=== PATIENT | female | born 1995 | race Two or more races ===

== ENCOUNTER 2018-02-25 19:11 | Emergency (ER) | payer OTHER ==
[2018-02-25 20:16] LABS: ANION GAP 11.6; CHLORIDE,CL 102 mmol/L (101-111); SODIUM,NA 137 mmol/L (135-145)
[2018-02-25] MEDS ORDERED: Ondansetron 4 MG/2 ML SDV IV ONE (20:30)
--- NOTE | 2018-02-25 20:32 | EDM.PDOC ---
ED HPI GENERAL MEDICAL PROBLEM - General Chief Complaint: Abdominal Pain Stated Complaint: SICK [id number] Time Seen by Provider: 02/25/18 19:20 Source of Information: Reports: Patient History Limitations: Reports: No Limitations - History of Present Illness INITIAL COMMENTS - FREE TEXT/NARRATIVE: This 22 yo female patient reports to the ED with generalized abdominal pain. The patient reports she had diarrhea and vomiting earlier today. The patient has increased concerns due to having some numbness and tingling in all extremities just before vomiting. The patient has not taken anything or done anything to make her symptoms better or worse. Onset: Today Onset Date: 02/25/18 Duration: Improving Location: Reports: Abdomen Quality: Reports: Other Severity: Moderate Improves with: Reports: None Worsens with: Reports: None Associated Symptoms: Reports: Nausea/Vomiting, Other Middle Abdomen Pain Score (Numeric/FACES): 3 - Related Data Allergies Allergy/AdvReac Type Severity Reaction Status Date / Time No Known Allergies Allergy Verified 02/25/18 19:50 Home Meds: Home Meds Sertraline [Zoloft] 50 mg PO BEDTIME 02/25/18 [History] cloNIDine HCl [Catapres] 0.1 mg PO BID 02/25/18 [History] Past Medical History Cardiovascular History: Reports: Heart Murmur 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 ED EXAM, GI/ABD - Physical Exam Exam: See Below Exam Limited By: No Limitations General Appearance: Alert, WD/WN, Mild Distress Eyes: Bilateral: Normal Appearance, EOMI Ears: Normal External Exam, Normal Canal, Hearing Grossly Normal, Normal TMs Nose: Normal Inspection, Normal Mucosa, No Blood Throat/Mouth: Normal Inspection, Normal Lips, Normal Teeth, Normal Gums, Normal Oropharynx, Normal Voice, No Airway Compromise Head: Atraumatic, Normocephalic Neck: Normal Inspection, Supple, Non-Tender, Full Range of Motion Respiratory/Chest: No Respiratory Distress, Lungs Clear, Normal Breath Sounds, No Accessory Muscle Use, Chest Non-Tender Cardiovascular: Normal Peripheral Pulses, Regular Rate, Rhythm, No Edema, No Gallop, No JVD, No Murmur, No Rub GI/Abdominal Exam: Normal Bowel Sounds, Soft, Non-Tender, No Organomegaly, No Distention, No Abnormal Bruit, No Mass, Pelvis Stable (Female) Exam: Deferred Rectal (Female) Exam: Deferred Back Exam: Normal Inspection, Full Range of Motion, NT Extremities: Normal Inspection, Normal Range of Motion, Non-Tender, Normal Capillary Refill, No Pedal Edema Neurological: Alert, Oriented, CN II-XII Intact, Normal Cognition, Normal Gait, Normal Reflexes, No Motor/Sensory Deficits Psychiatric: Normal Affect, Normal Mood Skin Exam: Warm, Dry, Intact, Normal Color, No Rash Lymphatic: No Adenopathy Course - Vital Signs Last Recorded V/S: Last Vital Signs Temp 36.2 C 02/25/18 19:15 Pulse 61 02/25/18 19:15 Resp 15 02/25/18 19:15 BP 114/71 02/25/18 19:15 Pulse Ox 100 02/25/18 19:15 - Orders/Labs/Meds Orders: Active Orders 24 hr Category Date Time Status DRUG SCREEN URINE BIORAD [URCHEM] Stat Lab 02/25/18 19:29 Ordered HCG QUALITATIVE,URINE [URCHEM] Stat Lab 02/25/18 19:29 Ordered UA W/MICROSCOPIC [URIN] Stat Lab 02/25/18 19:27 Ordered Labs: Laboratory Tests 02/25/18 02/25/18 02/25/18 Range/Units 19:29 19:40 19:40 WBC 8.8 (5.0-10.0) 10^3/uL RBC 4.65 (4.2-5.4) 10^6/uL Hgb 13.8 (12.0-16.0) g/dL Hct 41.4 (37.0-47.0) % MCV 89.0 (80-100) fL MCH 29.7 (27.0-34.0) pg MCHC 33.3 (33.0-35.0) g/dL Plt Count 273 (150-450) 10^3/uL Neut % (Auto) 59.6 (42.2-75.2) % Lymph % (Auto) 32.5 (20.5-50.1) % [place] % (Auto) 6.0 (2-8) % Eos % (Auto) 1.7 (1.0-3.0) % Baso % (Auto) 0.2 (0.0-1.0) % Sodium 137 (135-145) mmol/L Potassium 3.6 (3.6-5.0) mmol/L Chloride 102 (101-111) mmol/L Carbon Dioxide 27.0 (21.0-31.0) mmol/L Anion Gap 11.6 BUN 12 (7-18) mg/dL Creatinine 0.5 L (0.6-1.3) mg/dL Est Cr Clr Drug Dosing 141.95 mL/min Estimated GFR (MDRD) > 60 BUN/Creatinine Ratio 24.00 Glucose 121 H (74-105) mg/dL Calcium 9.3 (8.4-10.2) mg/dl Total Bilirubin 0.4 (0.2-1.0) mg/dL AST 48 H (10-42) IU/L ALT 88 H (10-60) IU/L Alkaline Phosphatase 66 (42-121) IU/L Total Protein 8.4 H (6.7-8.2) g/dl Albumin 4.5 (3.2-5.5) g/dl Globulin 3.9 Albumin/Globulin Ratio 1.15 Urine Color Yellow (YELLOW) Urine Appearance Slightly cloudy (CLEAR) Urine pH 5.5 (5.0-9.0) Ur Specific [place] >= 1.030 (1.005-1.030) Urine Protein Trace H (NEGATIVE) Urine Glucose (UA) Negative (NEGATIVE) Urine Ketones Negative (NEGATIVE) Urine Occult Blood Negative (NEGATIVE) Urine Nitrite Negative (NEGATIVE) Urine Bilirubin Small H (NEGATIVE) Urine Urobilinogen 0.2 (0.2-1.0) mg/dL Ur Leukocyte Esterase Negative (NEGATIVE) Urine RBC 0-5 /HPF Urine WBC 0-5 (0-5/HPF) /HPF Ur Epithelial Cells Few /HPF Urine Bacteria Moderate H (0-FEW/HPF) /HPF Urine Mucus Moderate H /LPF Urine HCG, Qual Urine Opiates Screen (NEGATIVE) Ur Oxycodone Screen (NEGATIVE) Urine Methadone Screen (NEGATIVE) Ur Barbiturates Screen (NEGATIVE) U Tricyclic Antidepress (NEGATIVE) Ur Phencyclidine Scrn (NEGATIVE) Ur Amphetamine Screen (NEGATIVE) U Methamphetamines Scrn (NEGATIVE) Urine MDMA Screen (NEGATIVE) U Benzodiazepines Scrn (NEGATIVE) Urine Cocaine Screen (NEGATIVE) U Marijuana (THC) Screen (NEGATIVE) 02/25/18 02/25/18 Range/Units 19:50 19:50 WBC (5.0-10.0) 10^3/uL RBC (4.2-5.4) 10^6/uL Hgb (12.0-16.0) g/dL Hct (37.0-47.0) % MCV (80-100) fL MCH (27.0-34.0) pg MCHC (33.0-35.0) g/dL Plt Count (150-450) 10^3/uL Neut % (Auto) (42.2-75.2) % Lymph % (Auto) (20.5-50.1) % [place] % (Auto) (2-8) % Eos % (Auto) (1.0-3.0) % Baso % (Auto) (0.0-1.0) % Sodium (135-145) mmol/L Potassium (3.6-5.0) mmol/L Chloride (101-111) mmol/L Carbon Dioxide (21.0-31.0) mmol/L Anion Gap BUN (7-18) mg/dL Creatinine (0.6-1.3) mg/dL Est Cr Clr Drug Dosing mL/min Estimated GFR (MDRD) BUN/Creatinine Ratio Glucose (74-105) mg/dL Calcium (8.4-10.2) mg/dl Total Bilirubin (0.2-1.0) mg/dL AST (10-42) IU/L ALT (10-60) IU/L Alkaline Phosphatase (42-121) IU/L Total Protein (6.7-8.2) g/dl Albumin (3.2-5.5) g/dl Globulin Albumin/Globulin Ratio Urine Color (YELLOW) Urine Appearance (CLEAR) Urine pH (5.0-9.0) Ur Specific [place] (1.005-1.030) Urine Protein (NEGATIVE) Urine Glucose (UA) (NEGATIVE) Urine Ketones (NEGATIVE) Urine Occult Blood (NEGATIVE) Urine Nitrite (NEGATIVE) Urine Bilirubin (NEGATIVE) Urine Urobilinogen (0.2-1.0) mg/dL Ur Leukocyte Esterase (NEGATIVE) Urine RBC /HPF Urine WBC (0-5/HPF) /HPF Ur Epithelial Cells /HPF Urine Bacteria (0-FEW/HPF) /HPF Urine Mucus /LPF Urine HCG, Qual Negative Urine Opiates Screen Negative (NEGATIVE) Ur Oxycodone Screen Negative (NEGATIVE) Urine Methadone Screen Negative (NEGATIVE) Ur Barbiturates Screen Negative (NEGATIVE) U Tricyclic Antidepress Negative (NEGATIVE) Ur Phencyclidine Scrn Negative (NEGATIVE) Ur Amphetamine Screen Negative (NEGATIVE) U Methamphetamines Scrn Negative (NEGATIVE) Urine MDMA Screen Negative (NEGATIVE) U Benzodiazepines Scrn Negative (NEGATIVE) Urine Cocaine Screen Negative (NEGATIVE) U Marijuana (THC) Screen Negative (NEGATIVE) Departure - Departure Time of Disposition: 20:29 Disposition: Home, Self-Care 01 Condition: Fair Clinical Impression: Gastroenteritis - Discharge Information *PRESCRIPTION DRUG MONITORING PROGRAM REVIEWED*: Not Applicable *COPY OF PRESCRIPTION DRUG MONITORING REPORT IN PATIENT TESFAYE: Not Applicable Instructions: Viral Gastroenteritis, Adult, [id number] Care Plan Goals: The patient was advised of the examination and lab results during the visit. The patient was given a dose of IV Zofran while in the ED to avoid nausea. The patient was encouraged to stick to a BRAT diet (bananas, rice, applesauce and toast) over the next 24 hours with small frequent sips of fluids. If the patient has any additional symptoms or concerns, the patient should follow-up with her primary care facility or return to the emergency department. - My Orders Last 24 Hours: My Active Orders 02/25/18 19:27 UA W/MICROSCOPIC [URIN] Stat 02/25/18 19:29 DRUG SCREEN URINE BIORAD [URCHEM] Stat HCG QUALITATIVE,URINE [URCHEM] Stat - Assessment/Plan Last 24 Hours: My Active Orders 02/25/18 19:27 UA W/MICROSCOPIC [URIN] Stat 02/25/18 19:29 DRUG SCREEN URINE BIORAD [URCHEM] Stat HCG QUALITATIVE,URINE [URCHEM] Stat
== END 2018-02-25 20:41 | disposition home or self-care (01) ==
LOC: DL.ED 19:11
DX: K21.9 Gastro-esophageal reflux disease without esophagitis (principal)
CPT/HCPCS: 36415; 80053; 80305; 81001; 81025; 85025; 96374; 99284; J2405

== ENCOUNTER 2019-11-08 11:35 | Emergency (ER) | payer BC, OTHER ==
[2019-11-08] MEDS ORDERED: Sodium Chloride 0.9% 1,000 ML IV ONE (11:46)
--- NOTE | 2019-11-08 11:58 | EDM.PDOC ---
ED HPI GENERAL MEDICAL PROBLEM - General Chief Complaint: Abdominal Pain Stated Complaint: VOMITING WHILE PREG <20 WKS Time Seen by Provider: 11/08/19 11:45 Source of Information: Reports: Patient History Limitations: Reports: No Limitations - History of Present Illness INITIAL COMMENTS - FREE TEXT/NARRATIVE: This 24 yo female patient reports to the ED with a 3 day history of nausea and vomiting. The patient reports she did have a positive home test. The patient reports she has not been able to keep anything down. The patient reports she is allergic to some nausea medication, but she does not know what it is. The patient has not been in to see a primary care provider for her . The patient reports she has not had a menstrual cycle since June. 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 Below) Other COLLECTION OFFICER History: Control Implant Left upper arm Psychiatric History: Reports: Anxiety, Depression Endocrine/Metabolic History: Reports: Other (See Below) Other Endocrine/Metabolic History: reports "prediabetes" - Past Surgical History Other Musculoskeletal Surgeries/Procedures:: Surgery to right toe Social & Family History - Family History Family Medical History: Noncontributory - Tobacco Use Smoking Status *Q: Never Smoker Second Hand Smoke Exposure: No - Caffeine Use Caffeine Use: Reports: None - Recreational Drug Use Recreational Drug Use: No ED ROS GENERAL - Review of Systems Review Of Systems: Comprehensive ROS is negative, except as noted in HPI. ED EXAM, GI/ABD - Physical Exam Exam: See Below Exam Limited By: No Limitations General Appearance: Alert, WD/WN, Mild Distress Eyes: Bilateral: Normal Appearance, EOMI Ears: Normal External Exam, Normal Canal, Hearing Grossly Normal, Normal TMs Nose: Normal Inspection, Normal Mucosa, No Blood Throat/Mouth: Normal Inspection, Normal Lips, Normal Teeth, Normal Gums, Normal Oropharynx, Normal Voice, No Airway Compromise Head: Atraumatic, Normocephalic Neck: Normal Inspection, Supple, Non-Tender, Full Range of Motion Respiratory/Chest: No Respiratory Distress, Lungs Clear, Normal Breath Sounds, No Accessory Muscle Use, Chest Non-Tender Cardiovascular: Normal Peripheral Pulses, Regular Rate, Rhythm, No Edema, No Gallop, No JVD, No Murmur, No Rub GI/Abdominal Exam: Normal Bowel Sounds, Soft, Non-Tender, No Organomegaly, No Distention, No Abnormal Bruit, No Mass, Pelvis Stable (Female) Exam: Deferred Rectal (Female) Exam: Deferred Back Exam: Normal Inspection, Full Range of Motion, NT Extremities: Normal Inspection, Normal Range of Motion, Non-Tender, Normal Capillary Refill, No Pedal Edema Neurological: Alert, Oriented, CN II-XII Intact, Normal Cognition, Normal Gait, Normal Reflexes, No Motor/Sensory Deficits Psychiatric: Normal Affect, Normal Mood Skin Exam: Warm, Dry, Intact, Normal Color, No Rash Lymphatic: No Adenopathy Course - Vital Signs Last Recorded V/S: Last Vital Signs Temp 36.7 C 11/08/19 11:38 Pulse 90 11/08/19 11:38 Resp 18 11/08/19 11:38 BP 130/78 11/08/19 11:38 Pulse Ox 98 11/08/19 11:38 - Orders/Labs/Meds Meds: Medications Discontinued Medications Generic Name Dose Route Start Last Admin Trade Name Freq PRN Reason Stop Dose Admin Sodium Chloride 1,000 mls @ 999 mls/hr 11/08/19 11:46 11/08/19 11:54 Normal Saline IV 11/08/19 12:46 999 mls/hr .BOLUS ONE Administration Departure - Departure Time of Disposition: 13:14 Disposition: Home, Self-Care 01 Condition: Fair Clinical Impression: Nausea & vomiting Qualifiers: Vomiting type: unspecified Vomiting Intractability: unspecified Qualified Code( s): R11.2 - Nausea with vomiting, unspecified - Discharge Information *PRESCRIPTION DRUG MONITORING PROGRAM REVIEWED*: Not Applicable *COPY OF PRESCRIPTION DRUG MONITORING REPORT IN PATIENT TESFAYE: Not Applicable Instructions: Nausea and Vomiting, Adult, [id number] Forms: ED Department Discharge Care Plan Goals: The patient was advised of the examination results during the visit. The patient was given IV solution during the visit. The patient was encouraged to follow-up with her primary care facility for continued evaluation and management. The patient was encouraged to stick to a bland diet with small frequent meals. If the patient has any additional symptoms or concerns, the patient should either return to the emergency department or visit her primary care facility. Sepsis Event Note - Evaluation Sepsis Screening Result: No Definite Risk - Focused Exam Vital Signs: Vital Signs Temp Pulse Resp BP Pulse Ox 11/08/19 11:38 36.7 C 90 18 130/78 98 Date Exam was Performed: 11/08/19 Time Exam was Performed: 13:14
== END 2019-11-08 13:21 | disposition home or self-care (01) ==
LOC: DL.ED 11:35
DX: O99.89 Other specified diseases and conditions complicating pregnancy, childbirth and the puerperium (principal); R11.2 Nausea with vomiting, unspecified; Z79.899 Other long term (current) drug therapy
CPT/HCPCS: 96360; 99283; J7030

== ENCOUNTER 2019-11-28 13:56 | Emergency (ER) | payer BC, OTHER ==
[2019-11-28 14:55] LABS: ANION GAP 12.5 mEq/L (7-13); CHLORIDE,CL 101 mmol/L (98-107); SODIUM,NA 137 mmol/L (136-145)
--- NOTE | 2019-11-28 15:16 | EDM.PDOC ---
Scribed by Grace Joaquin 11/28/19 [id number] for Zhou Perkins MD ED HPI GENERAL MEDICAL PROBLEM - General Chief Complaint: Abdominal Pain Stated Complaint: sharp pain in stomach/9 weeks Time Seen by Provider: 11/28/19 14:12 Source of Information: Reports: Patient, Old Records, RN, RN Notes Reviewed History Limitations: Reports: No Limitations - History of Present Illness INITIAL COMMENTS - FREE TEXT/NARRATIVE: G1, P0 patient presents to ER by POV stating she is 9 weeks with ultrasound confirmed intrauterine first . She sees Dr. Shukla at [facility]. EDC Jun 29, 2020. She has had some problems with nausea and vomiting, and has received IV fluids once, but is doing better with Reglan Rx. She states that the pain is in lower pelvic area now is constant and only gets better if she vomits or has diarrhea. She has had diarrhea since yesterday. She denies fever, chills, dysuria, flank pain, vaginal bleeding, vaginal discharge, contractions, leak of fluids, bloody or black stools, or bloody or coffee ground emesis. She denies any cough, fever, shortness of breath, travel or known COVID exposure. Onset: Gradual Onset Date: 11/27/19 Duration: Constant Location: Reports: Abdomen Quality: Reports: Sharp (with cramps that precede diarrhea BMs) Severity: Moderate Improves with: Reports: Other (Emesis or BMs.) Worsens with: Reports: Eating Associated Symptoms: Reports: No Other Symptoms Treatments SIGHTER: Reports: Other Medication(s) (Reglan 10mg) Bilateral Lower Abdomen Pain Score (Numeric/FACES): 6 - Related Data Allergies Allergy/AdvReac Type Severity Reaction Status Date / Time No Known Allergies Allergy Verified 11/28/19 14:04 Home Meds: Home Meds Metoclopramide HCl 10 mg PO Q6H PRN 11/28/19 [History] Past Medical History HEENT History: Reports: Impaired Vision Cardiovascular History: Reports: Heart Murmur Gastrointestinal History: Reports: Fatty Liver 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) Other ASPHALT RAKER History: Control Implant Left upper arm Psychiatric History: Reports: Anxiety, Depression Endocrine/Metabolic History: Reports: Other (See Below) Other Endocrine/Metabolic History: reports "prediabetes" - Past Surgical History Other Musculoskeletal Surgeries/Procedures:: Surgery to right toe Social & Family History - Family History Family Medical History: Noncontributory - Tobacco Use Smoking Status *Q: Never Smoker - Caffeine Use Caffeine Use: Reports: None - Recreational Drug Use Recreational Drug Use: No - Living Situation & Occupation Living situation: Reports: with Family ED ROS GENERAL - Review of Systems Review Of Systems: Comprehensive ROS is negative, except as noted in HPI. ED EXAM, GI/ABD - Physical Exam Exam: See Below Exam Limited By: No Limitations General Appearance: Alert, WD/WN, No Apparent Distress, Anxious Eyes: Bilateral: Normal Appearance (No scleral icterus.) Nose: Normal Inspection Throat/Mouth: Normal Inspection Head: Atraumatic, Normocephalic Neck: Normal Inspection Respiratory/Chest: No Respiratory Distress, Lungs Clear, Normal Breath Sounds, No Accessory Muscle Use, Chest Non-Tender Cardiovascular: Regular Rate, Rhythm, No Edema GI/Abdominal Exam: Normal Bowel Sounds, Soft, No Organomegaly, No Distention, No Abnormal Bruit, No Mass, Pelvis Stable, Tender (Mild suprapubic tenderness) (Female) Exam: Deferred Rectal (Female) Exam: Deferred Back Exam: Normal Inspection, Full Range of Motion. No: CVA Tenderness (L), CVA Tenderness (R) Extremities: Normal Inspection Neurological: Alert, Oriented, CN II-XII Intact, Normal Cognition, Normal Gait, No Motor/Sensory Deficits Psychiatric: Normal Affect, Anxious Skin Exam: Warm, Dry, Intact, Normal Color, No Rash Course - Vital Signs Last Recorded V/S: Last Vital Signs Temp 98 F 11/28/19 14:05 Pulse 71 11/28/19 14:05 Resp 16 11/28/19 14:05 BP 112/64 11/28/19 14:05 Pulse Ox 98 11/28/19 14:05 - Orders/Labs/Meds Orders: Active Orders 24 hr Category Date Time Status HCG QUANTITATIVE [CHEM] Stat Lab 11/28/19 14:31 Received Labs: Laboratory Tests 11/28/19 11/28/19 11/28/19 Range/Units 14:31 14:31 14:55 WBC 8.0 (5.0-10.0) 10^3/uL RBC 4.37 (4.2-5.4) 10^6/uL Hgb 13.3 (12.0-16.0) g/dL Hct 38.6 (37.0-47.0) % MCV 88.3 (80-100) fL MCH 30.4 (27.0-34.0) pg MCHC 34.5 (33.0-35.0) g/dL Plt Count 269 (150-450) 10^3/uL Neut % (Auto) 77.5 H (42.2-75.2) % Lymph % (Auto) 13.3 L (20.5-50.1) % [place] % (Auto) 8.5 H (2-8) % Eos % (Auto) 0.6 L (1.0-3.0) % Baso % (Auto) 0.1 (0.0-1.0) % Sodium 137 (136-145) mmol/L Potassium 3.5 (3.5-5.1) mmol/L Chloride 101 (98-107) mmol/L Carbon Dioxide 27 (21-32) mmol/L Anion Gap 12.5 (7-13) mEq/L BUN 5 L (7-18) mg/dL Creatinine 0.62 (0.55-1.02) mg/dL Est Cr Clr Drug Dosing 117.74 mL/min Estimated GFR (MDRD) > 60 BUN/Creatinine Ratio 8.1 (No establ ref range) Glucose 77 (74-99) mg/dL Calcium 8.9 (8.5-10.1) mg/dL Total Bilirubin 0.3 (0.2-1.0) mg/dL AST 24 (15-37) U/L ALT 48 (14-59) U/L Alkaline Phosphatase 44 L (46-116) U/L Total Protein 7.5 (6.4-8.2) g/dL Albumin 3.7 (3.4-5.0) g/dL Globulin 3.8 Albumin/Globulin Ratio 1.0 Amylase 43 (25-115) U/L Lipase 100 (73-393) U/L Urine Color Yellow (YELLOW) Urine Appearance Clear (CLEAR) Urine pH 7.5 (5.0-9.0) Ur Specific [place] 1.025 (1.005-1.030) Urine Protein Negative (NEGATIVE) Urine Glucose (UA) Negative (NEGATIVE) Urine Ketones Negative (NEGATIVE) Urine Occult Blood Negative (NEGATIVE) Urine Nitrite Negative (NEGATIVE) Urine Bilirubin Negative (NEGATIVE) Urine Urobilinogen 0.2 (0.2-1.0) mg/dL Ur Leukocyte Esterase Negative (NEGATIVE) Departure - Departure Time of Disposition: 15:09 Disposition: Home, Self-Care 01 Condition: Good Clinical Impression: Vomiting during , Pelvic pain during in first trimester, antepartum, Diarrhea during - Discharge Information *PRESCRIPTION DRUG MONITORING PROGRAM REVIEWED*: Not Applicable *COPY OF PRESCRIPTION DRUG MONITORING REPORT IN PATIENT TESFAYE: Not Applicable Instructions: Food Choices to Help Relieve Diarrhea, Adult, Abdominal Pain During , [employer]-[id number] Forms: ED Department Discharge Additional Instructions: Drink plenty of water. Follow up in clinic Saturday, November 29 with your doctor if not improved. Return to ER if you have heavy vaginal bleeding, or develop a fever. Sepsis Event Note - Evaluation Sepsis Screening Result: No Definite Risk - Focused Exam Vital Signs: Vital Signs Temp Pulse Resp BP Pulse Ox 11/28/19 14:05 98 F 71 16 112/64 98 Date Exam was Performed: 11/28/19 Time Exam was Performed: 15:09 - My Orders Last 24 Hours: My Active Orders 11/28/19 14:31 HCG QUANTITATIVE [CHEM] Stat - Assessment/Plan Last 24 Hours: My Active Orders 11/28/19 14:31 HCG QUANTITATIVE [CHEM] Stat I have read and agree with the documentation that has been completed regarding this visit. By signing this record, I attest that the documentation was completed in my physical presence and is an accurate record of the encounter.
== END 2019-11-28 15:19 | disposition home or self-care (01) ==
LOC: DL.ED 13:56
DX: O21.9 Vomiting of pregnancy, unspecified (principal); O99.89 Other specified diseases and conditions complicating pregnancy, childbirth and the puerperium; R10.2 Pelvic and perineal pain; R19.7 Diarrhea, unspecified; Z3A.09 9 weeks gestation of pregnancy
CPT/HCPCS: 36415; 80053; 81003; 82150; 83690; 84702; 85025; 99284

== ENCOUNTER 2020-06-30 08:08 | Inpatient (IN) | payer BC, MEDICAID ==
[2020-06-30] MEDS ORDERED: Sodium Chloride 0.9% 10 ML Syringe FLUSH PRN (09:00)
--- NOTE | 2020-06-30 09:03 | PCM.LDHP ---
L&D History of Present Illness - General Date of Service: 06/30/20 Admit Problem/Dx: Patient Status Order with Admit Dx/Problem 06/30/20 09:01 Patient Status [ADT] Routine Admission Diagnosis/Problem Admission Diagnosis/Problem Term - History of Present Illness Introduction:: Patient is a who presents to L & D for induction of labor for post dates. She is currently 40w1d and has had an uneventful . She is on Zoloft for depression but otherwise takes no other medications. Baby has been active. Denies contractions, vaginal bleeding or discharge, leakage of fluids. She is GBS negative. Denies headache, vision changes, abdominal pain, lower extremity edema. - Related Data Allergies/Adverse Reactions: Allergies Allergy/AdvReac Type Severity Reaction Status Date / Time metformin Allergy Diarrhea Verified 06/30/20 15:30 abernathy Allergy Hives Uncoded 06/30/20 15:29 Home Medications: Home Meds Pnv No.95/Ferrous Fum/Folic AC [ Vitamin Tablet] 1 each PO DAILY 06/03/20 [History] Sertraline [Zoloft] 25 mg PO DAILY 06/30/20 [History] Past Medical History HEENT History: Reports: Impaired Vision Cardiovascular History: Reports: None, Heart Murmur, High Cholesterol Gastrointestinal History: Reports: Fatty Liver Other Gastrointestinal History: FROST SCARF GLUER History: Reports: Other OB/BYN History: Control Implant Left upper arm Psychiatric History: Reports: Anxiety, Depression Endocrine/Metabolic History: Reports: Other (See Below) Other Endocrine/Metabolic History: reports "prediabetes" Hematologic History: Reports: Anemia Other Dermatologic History: athletes foot - Past Surgical History HEENT Surgical History: Reports: None Cardiovascular Surgical History: Reports: None GI Surgical History: Reports: None Other Musculoskeletal Surgeries/Procedures:: Surgery to right toe Social & Family History - Family History Family Medical History: No Pertinent Family History Psychiatric: Reports: Anxiety, Depression Endocrine/Metabolic: Reports: Diabetes, Type I, Diabetes, type II Oncologic: Reports: Breast, Uterine Other Family History: Half brother with coarctation of aorta, HTN - Tobacco Use Tobacco Use Status *Q: Never Tobacco User - Caffeine Use Caffeine Use: Reports: Soda - Alcohol Use Alcohol Use History: No - Living Situation & Occupation Living situation: Reports: with Family Occupation: Employed Social History Comment: Works at [employer]. H&P Review of Systems - Review of Systems: Review Of Systems: See Below General: Denies: Fever, Chills HEENT: Denies: Headaches, Sinus Congestion, Sore Throat, Visual Changes Pulmonary: Denies: Shortness of Breath Cardiovascular: Denies: Chest Pain, Lightheadedness, Blood Pressure Problem Gastrointestinal: Denies: Abdominal Pain, Diarrhea, Nausea, Vomiting Skin: Denies: Rash Neurological: Denies: Dizziness, Headache, Weakness L&D Exam - Exam Exam: See Below - Vital Signs Weight: 193 lb - OB Specific Fundal Height In cm: 40 Contraction Intensity: Mild Movement: Active Heart Tones: Present Heart Tones per Min: 145 Heart Rate (FHR) Variability: Moderate (6-25 bmp) Presentation: Vertex - Monteiro Score Monteiro Score Cervix Position: Anterior Monteiro Score Consistency: Medium Monteiro Score Effacement: 31-50% Monteiro Score Dilation: 1-2 cm Monteiro Score Infant's Station: -2 Monteiro Score Total: 6 - Exam General: Alert, Oriented HEENT: Mucosa Moist & [place] Neck: Supple, Trachea Midline Lungs: Clear to Auscultation, Normal Respiratory Effort Cardiovascular: Regular Rate, Regular Rhythm GI/Abdominal Exam: Soft Extremities: Normal Inspection, Non-Tender, Pedal Edema (Trace) Skin: Warm, Dry Neurological: Reflexes Equal Bilateral Psychiatric: Alert, Normal Affect, Normal Mood - Patient Data Result Diagrams: 06/30/20 10:03 - Problem List (1) Maternal anemia in , antepartum SNOMED Code(s): 676018928 ICD Code: O99.019 - ANEMIA COMPLICATING , UNSPECIFIED TRIMESTER Status: Acute Current Visit: Yes (2) Primiparous in third trimester SNOMED Code(s): 77530592, 87990237 ICD Code: Z34.03 - ENCNTR FOR SUPRVSN OF NORMAL FIRST PREG, THIRD TRIMESTER Status: Acute Current Visit: Yes (3) Postmaturity , 40-42 weeks gestation SNOMED Code(s): 00340148391426 ICD Code: O48.0 - POST-TERM Status: Acute Current Visit: Yes (4) Rubella immune SNOMED Code(s): 406975903 ICD Code: Z78.9 - OTHER SPECIFIED HEALTH STATUS Status: Acute Current V isit: Yes (5) History of fatty infiltration of liver SNOMED Code(s): 224065153 ICD Code: Z87.19 - PERSONAL HISTORY OF OTHER DISEASES OF THE DIGESTIVE SYSTEM Status: Acute Current Visit: Yes (6) Anxiety and depression SNOMED Code(s): 761202094 ICD Code: F41.9 - ANXIETY DISORDER, UNSPECIFIED; F32.9 - MAJOR DEPRESSIVE DISORDER, SINGLE EPISODE, UNSPECIFIED Status: Acute Current Visit: Yes Problem List Initiated/Reviewed/Updated: Yes Orders Last 24hrs: Active Orders 24 hr Category Date Time Status Patient Status [ADT] Routine ADT 06/30/20 09:01 Ordered Communication Order [RC] ASDIRECTED Care 06/30/20 09:01 Ordered Communication Order [RC] ASDIRECTED Care 06/30/20 09:01 Ordered Communication Order [RC] ASDIRECTED Care 06/30/20 09:01 Ordered Communication Order [RC] ASDIRECTED Care 06/30/20 09:01 Ordered Communication Order [RC] ASDIRECTED Care 06/30/20 09:01 Ordered Monitoring [RC] PER UNIT ROUTINE Care 06/30/20 09:01 Ordered Notify Provider Vital Signs OB [RC] ASDIRECTED Care 06/30/20 09:01 Ordered Notify Provider [RC] PRN Care 06/30/20 09:01 Ordered Notify Provider [RC] PRN Care 06/30/20 09:01 Ordered Notify Provider [RC] STAT Care 06/30/20 09:01 Ordered Peripheral IV Care [RC] . DIRECTED Care 06/30/20 09:01 Ordered Up ad Penny [RC] PER UNIT ROUTINE Care 06/30/20 09:01 Ordered Vaginal Exam [RC] PRN Care 06/30/20 09:01 Ordered Vital Signs [RC] PER UNIT ROUTINE Care 06/30/20 09:01 Ordered CBC W/O DIFF,HEMOGRAM [HEME] Routine Lab 06/30/20 09:00 Ordered CORONAVIRUS COVID-19 ANDER [MOLEC] Routine Lab 06/30/20 08:35 Received Acetaminophen [TylenoL] Med 06/30/20 09:00 Ordered 650 mg PO Q4H PRN Lactated Ringers [Ringers, Lactated] 1,000 ml Med 06/30/20 09:00 Ordered IV ASDIRECTED Oxytocin 30 Units in NS @ 2 MUNITS/MIN(500ml) Med 06/30/20 09:00 Ordered Oxytocin/Normal Saline [Pitocin in NS 30 UNIT/500 ML] 30 unit in 500 ml IV TITRATE Sodium Chloride 0.9% [Saline Flush] Med 06/30/20 09:00 Ordered 10 ml FLUSH ASDIRECTED PRN Peripheral IV Insertion Adult [OM.PC] Urgent Oth 06/30/20 09:01 Ordered Assessment/Plan Comment:: Admit to L&D for induction of labor. Pitocin protocol. AROM when able. GBS negative- no abx needed. Anticipate vaginal delivery. Shona Shukla MD
[2020-06-30] MEDS: Lactated Ringers 1,000 ML IV SCH ×3 (11:12→18:42)
[2020-06-30] MEDS: Oxytocin/Normal Saline 30 UNIT/500 ML BAG IV SCH (11:13)
[2020-06-30] MEDS ORDERED: hydrOXYzine HCl 25 MG Tab PO PRN (19:22)
[2020-06-30] MEDS: Misoprostol 25 MCG (1/4 of 100 MCG) Tab VAG PRN (20:31)
[2020-07-01] MEDS: Misoprostol 25 MCG (1/4 of 100 MCG) Tab VAG PRN (00:32)
[2020-07-01] MEDS: Lactated Ringers 1,000 ML IV SCH ×3 (04:57→16:15)
[2020-07-01] MEDS: Oxytocin/Normal Saline 30 UNIT/500 ML BAG IV SCH ×2 (04:59→20:27)
[2020-07-01] MEDS ORDERED: Ondansetron 4 MG/2 ML SDV IVPUSH PRN (11:05)
[2020-07-01] MEDS ORDERED: fentaNYL 100 MCG/2 ML SDV IVPUSH ONE (11:06)
[2020-07-01] MEDS ORDERED: ePHEDrine 50 MG/ML SDV IVPUSH PRN (11:21)
[2020-07-01] MEDS ORDERED: Promethazine 25 MG/ML SDV IM PRN (11:21)
[2020-07-01] MEDS ORDERED: Naloxone 2 MG/2 ML Syringe IVPUSH PRN (11:21)
[2020-07-01] MEDS ORDERED: Lactated Ringers 500 ML IV SCH ×2 (11:30)
[2020-07-01] MEDS ORDERED: Sodium Chloride 0.9% 1,000 ML IV SCH (11:30)
[2020-07-01] MEDS ORDERED: Nalbuphine 10 MG/1 ML Vial IV ONE (13:48)
[2020-07-01] MEDS ORDERED: fentaNYL 100 MCG/2 ML SDV ONE (15:47)
[2020-07-01] MEDS ORDERED: EPINEPHrine 1 MG/1 ML Amp ONE (15:47)
--- NOTE | 2020-07-01 16:51 | PCM.PRNOTE ---
- Free Text/Narrative Note: Requested to provide analgesia to full term patient in severe pain. Upon entering the room, patient is sitting on edge of bed complaining of severe abdominal/pelvic pain and discomfort. Procedure was discussed with patient including adverse outcomes and expectations. Pt consented to analgesia, SAB/IT. Pt placed into a proper sitting position. Landmarks for SAB/IT were identified and marked. Hands were washed and appropriate PPE was applied. Back was prepped with betadine x3. A sterile, transparent, fenestrated drape was applied. Excess betadine was removed. Using 3 mL of a 1% lidocaine solution, a skin wheel was placed at the L2/L3 interspace. A 24 ga (4 inch) Pencan spinal needle was inserted until positive for CSF. Negative for heme or paresthesias. Injected fentanyl 20 mcg, sufentanil 20 mcg, and 7.5 mg of a 0.75% bupivacaine solution with an epi wash. Pt was placed left lateral tilt position for approximately 20 minutes. There were zero complications or adverse outcomes. Will continue to monitor. Procedure Date & Time: 07/01/2020 [id number]
[2020-07-01] MEDS ORDERED: Misoprostol 400 MCG (4 X 100 MCG TAB) RECTAL ONE (19:35)
[2020-07-01] MEDS ORDERED: Methylergonovine 0.2 MG/1 ML Amp ONE (19:45)
[2020-07-01] MEDS ORDERED: Sodium Chloride 0.9% 10 ML Syringe FLUSH PRN (19:56)
[2020-07-01] MEDS ORDERED: Acetaminophen 325 MG Tab PO PRN (19:56)
[2020-07-01] MEDS ORDERED: Tranexamic Acid 1,000 MG in Sodium Chloride 0.9% 100 ML IV PRN (19:56)
[2020-07-01] MEDS ORDERED: Carboprost Tromethamine 250 MCG/1 ML Amp IM PRN (19:56)
[2020-07-01] MEDS ORDERED: Simethicone 80 MG Tab.Chew PO PRN (19:56)
[2020-07-01] MEDS ORDERED: Oxytocin 10 Units/1 ML SDV IM PRN (19:56)
[2020-07-01] MEDS ORDERED: Misoprostol 400 MCG (4 X 100 MCG TAB) RECTAL PRN (19:56)
[2020-07-01] MEDS ORDERED: Benzocaine/Menthol 20%-0.5% Spray 56 GM Canister TOP PRN (19:56)
--- NOTE | 2020-07-01 20:00 | PCM.DEL ---
L & D Note - General Info Date of Service: 07/01/20 - Delivery Note Labor: Induced by Oxytocin Cervical Ripening Method: Misoprostil, Oxytocin Delivery Outcome: Livebirth Delivery Method: Spontaneous Vaginal Delivery-Single Presentation: Left Occiput Posterior (LOP) Nuchal Cord: None Anesthesia Type: Intrathecal Amniotic Fluid Description: Clear Episiotomy Type: None Laceration: 2nd Degree, Perineal Suture type: Vicryl Suture size: 3-0 Placenta: Intact, Spontaneous Cord: 3 Vessels Estimated Blood Loss: 500 Resuscitation Needed: Yes : Bulb Syringe, Stimulated, Warmed Provider: Shona Shukla Score 1 min: 1 Score 5 min: 7 Post Delivery Events: Hemorrhage Second Stage Interventions: Reports: Pushing, McRobert's Position Delivery Comments (Free Text/Narrative):: Patient presented to [facility] for induction of labor for post dates. Pitocin was initiated but no cervical change noted after 8 hours. Pitocin was shut off and 2 doses of cytotec were given. Pitocin initiated again and she had SROM for clear fluid. Intrathecal was provided once cervical dilation noted. She progressed to complete and pushed for under 2 hours. As head was , the head progressed no further than the forehead. was LOP at that point. Patient placed in Samuel and told to push. Infant's head then delivered. Mild shoulder dystocia noted and resolved with Samuel and rotation of anterior shoulder to maternal left. Infant then delivered with gentle traction but appeared stunned with no t one or respiratory effort. Cord was clamped and cut and infant was transferred to the warmer. Heart rate was above 60 but below 100 so PPV was initiated. PPV given for 1 minute then started to cry, tone improved. Apgars were 1 and 7. Placenta delivered spontaneously. A 2nd degree perineal laceration was found and repaired in the usual fashion. Uterus was boggy at first but became firm with bimanual massage. Mother did have post hemorrhage managed with rectal cytotec and methergine. EBL 500 cc. Both mother and infant were stable and remained in the delivery room. - General Info Date of Service: 07/01/20 - Patient Data Vitals - Most Recent: Last Vital Signs Temp 99.5 F 07/01/20 18:45 Pulse 76 07/01/20 17:00 Resp 18 07/01/20 17:00 BP 118/67 07/01/20 17:00 Pulse Ox 100 07/01/20 17:00 Weight - Most Recent: 193 lb I&O - Last 24 Hours: Intake & Output 07/01/20 07/01/20 07/01/20 06:59 14:59 22:59 Intake Total 2100 Output Total 350 Balance 1750 Med Orders - Current: Current Medications Acetaminophen (Tylenol) 650 mg PO Q4H PRN PRN Reason: Pain/Fever Acetaminophen (Tylenol) 650 mg PO Q6H PRN PRN Reason: mild pain or fever Benzocaine/Menthol (Dermoplast Pain Relief Orestes) 0 gm TOP Q4H PRN PRN Reason: Perineal comfort measures Carboprost Tromethamine (Hemabate Ds) 250 mcg IM ASDIRECTED PRN PRN Reason: Excessive vaginal bleeding Docusate Sodium (Colace) 100 mg PO BID PRN PRN Reason: Constipation Ephedrine Sulfate (Ephedrine Sulfate) 5 mg IVPUSH Q5M PRN PRN Reason: See Label Comments Hydroxyzine HCl (Atarax) 50 mg PO Q6H PRN PRN Reason: Sleep Last Admin: 06/30/20 20:28 Dose: 50 mg Documented by: Lactated Ringer's (Ringers, Lactated) 1,000 mls @ 999 mls/hr IV ASDIRECTED MASON Last Admin: 07/01/20 16:15 Dose: 125 mls/hr Documented by: Oxytocin/Sodium Chloride (Pitocin In Ns 30 Unit/500 Ml) 30 unit in 500 mls @ 2 mls/hr IV TITRATE MASON; Protocol Last Titration: 07/01/20 19:30 Dose: 500 munits/min, 500 mls/hr Documented by: Sodium Chloride (Normal Saline) 1,000 mls @ 500 mls/hr IV .BOLUS MASON Lactated Ringer's (Ringers, Lactated) 500 mls @ 999 mls/hr IV SEECOMMENT MASON Lactated Ringer's (Ringers, Lactated) 500 mls @ 999 mls/hr IV .BOLUS MASON Tranexamic Acid 1,000 mg/ (Sodium Chloride) 110 mls @ 660 mls/hr IV ONETIME PRN PRN Reason: Bleeding Ibuprofen (Motrin) 800 mg PO Q8H PRN PRN Reason: Mild Pain or Fever Misoprostol (Cytotec) 800 mcg RECTAL ONETIME PRN PRN Reason: Hemorrhage Naloxone HCl (Narcan) 0.1 mg IVPUSH SEECOMMENT PRN PRN Reason: Respiratory Depression Ondansetron HCl (Zofran) 4 mg IVPUSH Q6HR PRN PRN Reason: Nausea Last Admin: 07/01/20 11:23 Dose: 4 mg Documented by: Oxytocin (Pitocin) 10 unit IM ONETIME PRN PRN Reason: Bleeding Prenat Multivit/[place]/Iron/Folic Ac ( Plus Iron) 1 each PO DAILY MASON Promethazine HCl (Phenergan) 12.5 mg IM Q6H PRN PRN Reason: Nausea/Vomiting Simethicone (Simethicone) 80 mg PO Q4H PRN PRN Reason: Gas Sodium Chloride (Saline Flush) 10 ml FLUSH ASDIRECTED PRN PRN Reason: Keep Vein Open Sodium Chloride (Saline Flush) 10 ml FLUSH ASDIRECTED PRN PRN Reason: Keep Vein Open Discontinued Medications Epinephrine HCl (Adrenalin) Confirm Administered Dose 1 mg .ROUTE .STK-MED ONE Stop: 07/01/20 15:48 Last Admin: 07/01/20 16:40 Dose: Not Given Documented by: Fentanyl (Sublimaze) 50 mcg IVPUSH ONETIME ONE Stop: 07/01/20 11:07 Last Admin: 07/01/20 11:23 Dose: 50 mcg Documented by: Fentanyl (Sublimaze) Confirm Administered Dose 100 mcg .ROUTE .STK-MED ONE Stop: 07/01/20 15:48 Last Admin: 07/01/20 16:40 Dose: Not Given Documented by: Methylergonovine Maleate (Methergine) Confirm Administered Dose 0.2 mg .ROUTE .STK-MED ONE Stop: 07/01/20 19:46 Misoprostol (Cytotec) 25 mcg VAG Q4H PRN PRN Reason: cervical ripening Last Admin: 07/01/20 00:32 Dose: 25 mcg Documented by: Misoprostol (Cytotec) 800 mcg RECTAL ONETIME ONE Stop: 07/01/20 19:36 Last Admin: 07/01/20 19:43 Dose: 800 mcg Documented by: Nalbuphine HCl (Nubain) 10 mg IV ONETIME ONE Stop: 07/01/20 13:49 Last Admin: 07/01/20 14:17 Dose: 10 mg Documented by: Sufentanil Citrate (Sufenta) Confirm Administered Dose 50 mcg .ROUTE .STK-MED ONE Stop: 07/01/20 15:48 Last Admin: 07/01/20 16:40 Dose: Not Given Documented by: - Problem List & Annotations (1) Maternal anemia in , antepartum SNOMED Code(s): 850126884 Code(s): O99.019 - ANEMIA COMPLICATING , UNSPECIFIED TRIMESTER Status: Acute Current Visit: Yes (2) Primiparous in third trimester SNOMED Code(s): 89654262, 10909834 Code(s): Z34.03 - ENCNTR FOR SUPRVSN OF NORMAL FIRST PREG, THIRD TRIMESTER Status: Acute Current Visit: Yes (3) Postmaturity , 40-42 weeks gestation SNOMED Code(s): 39220574704347 Code(s): O48.0 - POST-TERM Status: Acute Current Visit: Yes (4) Rubella immune SNOMED Code(s): 167749174 Code(s): Z78.9 - OTHER SPECIFIED HEALTH STATUS Status: Acute Current Visit: Yes (5) History of fatty infiltration of liver SNOMED Code(s): 851572068 Code(s): Z87.19 - PERSONAL HISTORY OF OTHER DISEASES OF THE DIGESTIVE SYSTEM Status: Acute Current Visit: Yes (6) Anxiety and depression SNOMED Code(s): 600811222 Code(s): F41.9 - ANXIETY DISORDER, UNSPECIFIED; F32.9 - MAJOR DEPRESSIVE DISORDER, SINGLE EPISODE, UNSPECIFIED Status: Acute Current Visit: Yes - Problem List Review Problem List Initiated/Reviewed/Updated: Yes - My Orders Last 24 Hours: My Active Orders 06/30/20 19:22 hydrOXYzine HCL [Atarax] 50 mg PO Q6H PRN 07/01/20 Breakfast Regular Diet [DIET] 07/01/20 11:05 Ondansetron [Zofran] 4 mg IVPUSH Q6HR PRN 07/01/20 11:21 Communication Order [RC] PER UNIT ROUTINE Communication Order [RC] PER UNIT ROUTINE Communication Order [RC] PER UNIT ROUTINE Up With Assistance [RC] ASDIRECTED Verify Patient Consent Obtain [RC] ASDIRECTED Naloxone [Narcan] 0.1 mg IVPUSH SEECOMMENT PRN Promethazine [Phenergan] 12.5 mg IM Q6H PRN ePHEDrine [ePHEDrine sulfate] 5 mg IVPUSH Q5M PRN Blood Pressure [OM.PC] Routine 07/01/20 11:30 Lactated Ringers [Ringers, Lactated] 500 ml IV .BOLUS Lactated Ringers [Ringers, Lactated] 500 ml IV SEECOMMENT Sodium Chloride 0.9% [Normal Saline] 1,000 ml IV .BOLUS 07/01/20 Lunch Regular Diet [DIET] 07/01/20 Dinner Regular Diet [DIET] 07/01/20 18:00 Insert Urinary Catheter [OM.PC] Q24H 07/01/20 19:30 Vital Signs [RC] PFP 07/01/20 19:56 Up ad Penny [RC] ASDIRECTED Acetaminophen [TylenoL] 650 mg PO Q6H PRN Benzocaine/Menthol [Dermoplast Pain Relief Orestes] See Dose Instructions TOP Q4H PRN Carboprost Tromethamine [Hemabate DS] 250 mcg IM ASDIRECTED PRN Docusate Sodium [Colace] 100 mg PO BID PRN Ibuprofen [Motrin] 800 mg PO Q8H PRN Oxytocin [Pitocin] 10 unit IM ONETIME PRN Simethicone 80 mg PO Q4H PRN Sodium Chloride 0.9% [Saline Flush] 10 ml FLUSH ASDIRECTED PRN Tranexamic Acid [Cyklokapron] 1,000 mg Sodium Chloride 0.9% [Normal Saline] 100 ml IV ONETIME miSOPROStoL [Cytotec] 800 mcg RECTAL ONETIME PRN Assess Lochia [WOMSER] Per Unit Routine Assess Uterine Involution [WOMSER] Per Unit Routine Breast Pump [WOMSER] Per Unit Routine Ice Therapy [OM.PC] Per Unit Routine Perineal Care [OM.PC] Per Unit Routine Saline Lock Insert [OM.PC] Urgent Sitz Bath [OM.PC] Per Unit Routine Resuscitation Status Routine 07/02/20 06:00 CBC W/O DIFF,HEMOGRAM [HEME] Routine 07/02/20 09:00 Vit with Ca/FA/Iron [ Plus Iron] 1 each PO DAILY
[2020-07-01] MEDS: Docusate Sodium 100 MG Cap PO PRN (20:39)
[2020-07-01] MEDS: Ibuprofen 800 MG Tab PO PRN (20:41)
[2020-07-01] MEDS: Acetaminophen 325 MG Tab PO PRN (20:41)
[2020-07-02] MEDS ORDERED: Prenatal Multivitamin with Calcium/Folic Acid/Iron Tab PO SCH (09:00)
[2020-07-02] MEDS: Ibuprofen 800 MG Tab PO PRN ×2 (09:30→18:45)
[2020-07-02] MEDS: Docusate Sodium 100 MG Cap PO PRN (09:31)
--- NOTE | 2020-07-02 09:36 | PCM.PNPP ---
- General Info Date of Service: 07/02/20 Subjective Update: Patient is post day 1 from [facility] at 40w3d. She is doing well. States pain is controlled with OTC medications. Her lochia is mild to moderate. She is passing gas but has not had a bowel movement. Her lower extremity edema is improving. She is urinating spontaneously. She is tolerating regular diet. She is . Had some trouble latching overnight but is using a nipple shield now and things are improving. She has no other concerns today. Functional Status: Reports: Pain Controlled - Review of Systems General: Denies: Fever, Chills HEENT: Denies: Headaches, Visual Changes Pulmonary: Denies: Shortness of Breath Gastrointestinal: Denies: Nausea, Vomiting Neurological: Denies: Dizziness, Headache - General Info Date of Service: 07/02/19 - Patient Data Vital Signs - Most Recent: Last Vital Signs Temp 97.5 F 07/01/20 22:30 Pulse 91 07/01/20 22:30 Resp 18 07/01/20 22:30 BP 147/79 H 07/01/20 22:30 Pulse Ox 100 07/01/20 17:00 Weight - Most Recent: 193 lb I&O - Last 24 Hours: Intake & Output 07/01/20 07/02/20 07/02/20 22:59 06:59 14:59 Intake Total 3850 Output Total 350 650 Balance 3500 -650 Lab Results - Last 24 Hours: Laboratory Results - last 24 hr 07/02/20 Range/Units 05:25 WBC 13.5 H (5.0-10.0) 10^3/uL RBC 3.54 L (4.2-5.4) 10^6/uL Hgb 10.8 L D (12.0-16.0) g/dL Hct 31.6 L (37.0-47.0) % MCV 89.3 (80-100) fL MCH 30.5 (27.0-34.0) pg MCHC 34.2 (33.0-35.0) g/dL Plt Count 216 (150-450) 10^3/uL Med Orders - Current: Current Medications Acetaminophen (Tylenol) 650 mg PO Q4H PRN PRN Reason: Pain/Fever Last Admin: 07/01/20 20:41 Dose: 650 mg Documented by: Acetaminophen (Tylenol) 650 mg PO Q6H PRN PRN Reason: mild pain or fever Benzocaine/Menthol (Dermoplast Pain Relief [place]) 0 gm TOP Q4H PRN PRN Reason: Perineal comfort measures Last Admin: 07/01/20 20:42 Dose: 2 sprays Documented by: Carboprost Tromethamine (Hemabate Ds) 250 mcg IM ASDIRECTED PRN PRN Reason: Excessive vaginal bleeding Docusate Sodium (Colace) 100 mg PO BID PRN PRN Reason: Constipation Last Admin: 07/02/20 09:31 Dose: 100 mg Documented by: Ephedrine Sulfate (Ephedrine Sulfate) 5 mg IVPUSH Q5M PRN PRN Reason: See Label Comments Hydroxyzine HCl (Atarax) 50 mg PO Q6H PRN PRN Reason: Sleep Last Admin: 06/30/20 20:28 Dose: 50 mg Documented by: Lactated Ringer's (Ringers, Lactated) 1,000 mls @ 999 mls/hr IV ASDIRECTED MASON Last Admin: 07/01/20 16:15 Dose: 125 mls/hr Documented by: Oxytocin/Sodium Chloride (Pitocin In Ns 30 Unit/500 Ml) 30 unit in 500 mls @ 2 mls/hr IV TITRATE MASON; Protocol Last Titration: 07/01/20 22:30 Dose: 0 munits/min, 0 mls/hr Documented by: Sodium Chloride (Normal Saline) 1,000 mls @ 500 mls/hr IV .BOLUS MASON Lactated Ringer's (Ringers, Lactated) 500 mls @ 999 mls/hr IV SEECOMMENT MASON Lactated Ringer's (Ringers, Lactated) 500 mls @ 999 mls/hr IV .BOLUS MASON Tranexamic Acid 1,000 mg/ (Sodium Chloride) 110 mls @ 660 mls/hr IV ONETIME PRN PRN Reason: Bleeding Ibuprofen (Motrin) 800 mg PO Q8H PRN PRN Reason: Mild Pain or Fever Last Admin: 07/02/20 09:30 Dose: 800 mg Documented by: Misoprostol (Cytotec) 800 mcg RECTAL ONETIME PRN PRN Reason: Hemorrhage Naloxone HCl (Narcan) 0.1 mg IVPUSH SEECOMMENT PRN PRN Reason: Respiratory Depression Ondansetron HCl (Zofran) 4 mg IVPUSH Q6HR PRN PRN Reason: Nausea Last Admin: 07/01/20 11:23 Dose: 4 mg Documented by: Oxytocin (Pitocin) 10 unit IM ONETIME PRN PRN Reason: Bleeding Prenat Multivit/[place]/Iron/Folic Ac ( Plus Iron) 1 each PO DAILY MASON Last Admin: 07/02/20 09:31 Dose: 1 each Documented by: Promethazine HCl (Phenergan) 12.5 mg IM Q6H PRN PRN Reason: Nausea/Vomiting Simethicone (Simethicone) 80 mg PO Q4H PRN PRN Reason: Gas Sodium Chloride (Saline Flush) 10 ml FLUSH ASDIRECTED PRN PRN Reason: Keep Vein Open Sodium Chloride (Saline Flush) 10 ml FLUSH ASDIRECTED PRN PRN Reason: Keep Vein Open Discontinued Medications Epinephrine HCl (Adrenalin) Confirm Administered Dose 1 mg .ROUTE .STK-MED ONE Stop: 07/01/20 15:48 Last Admin: 07/01/20 16:40 Dose: Not Given Documented by: Fentanyl (Sublimaze) 50 mcg IVPUSH ONETIME ONE Stop: 07/01/20 11:07 Last Admin: 07/01/20 11:23 Dose: 50 mcg Documented by: Fentanyl (Sublimaze) Confirm Administered Dose 100 mcg .ROUTE .STK-MED ONE Stop: 07/01/20 15:48 Last Admin: 07/01/20 16:40 Dose: Not Given Documented by: Methylergonovine Maleate (Methergine) Confirm Administered Dose 0.2 mg .ROUTE .STK-MED ONE Stop: 07/01/20 19:46 Last Admin: 07/01/20 19:50 Dose: 0.2 mg Documented by: Misoprostol (Cytotec) 25 mcg VAG Q4H PRN PRN Reason: cervical ripening Last Admin: 07/01/20 00:32 Dose: 25 mcg Documented by: Misoprostol (Cytotec) 800 mcg RECTAL ONETIME ONE Stop: 07/01/20 19:36 Last Admin: 07/01/20 19:43 Dose: 800 mcg Documented by: Nalbuphine HCl (Nubain) 10 mg IV ONETIME ONE Stop: 07/01/20 13:49 Last Admin: 07/01/20 14:17 Dose: 10 mg Documented by: Sufentanil Citrate (Sufenta) Confirm Administered Dose 50 mcg .ROUTE .STK-MED ONE Stop: 07/01/20 15:48 Last Admin: 07/01/20 16:40 Dose: Not Given Documented by: - Infant Interaction Disposition, : [place] in Room with Family Feeding: Breastfed ; Nursed Well Support Person: Significant Other - Recovery Exam Fundal Tone: Firm Fundal Level: At Umbilicus Fundal Placement: Midline Lochia Amount: Small Lochia Color: Rubra/Red Perineum Description: Intact, Minimal Bruising/Swelling Episiotomy/Laceration: Approximated Bladder Status: Nonpalpable - Exam General: Alert, Oriented HEENT: Mucous Membr. Moist/[place] Neck: Supple Lungs: Clear to Auscultation, Normal Respiratory Effort Cardiovascular: Regular Rate, Regular Rhythm GI/Abdominal Exam: Soft, Tender Extremities: Normal Inspection, Non-Tender, Pedal Edema (1+) Skin: Warm, Dry Neurological: No New Focal Deficit Psy/Mental Status: Alert, Normal Affect, Normal Mood - Problem List & Annotations (1) Maternal anemia in , antepartum SNOMED Code(s): 977046558 Code(s): O99.019 - ANEMIA COMPLICATING , UNSPECIFIED TRIMESTER Status: Acute Current Visit: Yes (2) Primiparous in third trimester SNOMED Code(s): 15868865, 56355647 Code(s): Z34.03 - ENCNTR FOR SUPRVSN OF NORMAL FIRST PREG, THIRD TRIMESTER Status: Acute Current Visit: Yes (3) Postmaturity , 40-42 weeks gestation SNOMED Code(s): 64522879669497 Code(s): O48.0 - POST-TERM Status: Acute Current Visit: Yes (4) Rubella immune SNOMED Code(s): 242154551 Code(s): Z78.9 - OTHER SPECIFIED HEALTH STATUS Status: Acute Current Visit: Yes (5) History of fatty infiltration of liver SNOMED Code(s): 554084584 Code(s): Z87.19 - PERSONAL HISTORY OF OTHER DISEASES OF THE DIGESTIVE SYSTEM Status: Acute Current Visit: Yes (6) Anxiety and depression SNOMED Code(s): 488457498 Code(s): F41.9 - ANXIETY DISORDER, UNSPECIFIED; F32.9 - MAJOR DEPRESSIVE DISORDER, SINGLE EPISODE, UNSPECIFIED Status: Acute Current Visit: Yes (7) Shoulder dystocia, delivered SNOMED Code(s): 999420158, 931728499 Code(s): O66.0 - OBSTRUCTED LABOR DUE TO SHOULDER DYSTOCIA Status: Acute Current Visit: Yes (8) hemorrhage SNOMED Code(s): 37624594 Code(s): O72.1 - OTHER IMMEDIATE HEMORRHAGE Status: Acute Current Visit: Yes (9) Vaginal delivery SNOMED Code(s): 908378192 Code(s): O80 - ENCOUNTER FOR FULL-TERM UNCOMPLICATED DELIVERY Status: Acute Current Visit: Yes - Problem List Review Problem List Initiated/Reviewed/Updated: Yes - My Orders Last 24 Hours: My Active Orders 07/01/20 11:05 Ondansetron [Zofran] 4 mg IVPUSH Q6HR PRN 07/01/20 11:21 Naloxone [Narcan] 0.1 mg IVPUSH SEECOMMENT PRN Promethazine [Phenergan] 12.5 mg IM Q6H PRN ePHEDrine [ePHEDrine sulfate] 5 mg IVPUSH Q5M PRN Blood Pressure [OM.PC] Routine 07/01/20 11:30 Lactated Ringers [Ringers, Lactated] 500 ml IV .BOLUS Lactated Ringers [Ringers, Lactated] 500 ml IV SEECOMMENT Sodium Chloride 0.9% [Normal Saline] 1,000 ml IV .BOLUS 07/01/20 Lunch Regular Diet [DIET] 07/01/20 Dinner Regular Diet [DIET] 07/01/20 19:30 Vital Signs [RC] PFP 07/01/20 19:56 Up ad Penny [RC] ASDIRECTED Acetaminophen [TylenoL] 650 mg PO Q6H PRN Benzocaine/Menthol [Dermoplast Pain Relief [place]] See Dose Instructions TOP Q4H PRN Carboprost Tromethamine [Hemabate DS] 250 mcg IM ASDIRECTED PRN Docusate Sodium [Colace] 100 mg PO BID PRN Ibuprofen [Motrin] 800 mg PO Q8H PRN Oxytocin [Pitocin] 10 unit IM ONETIME PRN Simethicone 80 mg PO Q4H PRN Sodium Chloride 0.9% [Saline Flush] 10 ml FLUSH ASDIRECTED PRN Tranexamic Acid [Cyklokapron] 1,000 mg Sodium Chloride 0.9% [Normal Saline] 100 ml IV ONETIME miSOPROStoL [Cytotec] 800 mcg RECTAL ONETIME PRN Assess Lochia [WOMSER] Per Unit Routine Assess Uterine Involution [WOMSER] Per Unit Routine Breast Pump [WOMSER] Per Unit Routine Ice Therapy [OM.PC] Per Unit Routine Perineal Care [OM.PC] Per Unit Routine Saline Lock Insert [OM.PC] Urgent Sitz Bath [OM.PC] Per Unit Routine Resuscitation Status Routine 07/02/20 09:00 Vit with Ca/FA/Iron [ Plus Iron] 1 each PO DAILY - Plan Plan:: Initiate post orders. Continue Tylenol, Ibuprofen, stool softeners. Encourage hydration. Labs stable this morning, will initiate iron supplements for acute blood loss. Continue to work on /latch. Education provided. Plan to discharge tomorrow. All questions answered. Shona Shukla MD
[2020-07-02] MEDS: Acetaminophen 325 MG Tab PO PRN (20:34)
[2020-07-03] MEDS ORDERED: EPINEPHrine 1 MG/1 ML Amp ONE (14:14)
[2020-07-03] MEDS ORDERED: fentaNYL 100 MCG/2 ML SDV ITHECAL ONE (14:14)
== END 2020-07-03 14:15 | disposition home or self-care (01) | DRG 560 ==
LOC: DL.OB 08:08 → OBSVTOIN 07-01 19:05
PROVIDERS: ADMIT Family Medicine; ATTEND Family Medicine
PROC: 10E0XZZ Delivery of Products of Conception, External Approach (ICD-10-PCS; principal; 2020-07-01)
PROC: 10907ZC Drainage of Amniotic Fluid, Therapeutic from Products of Conception, Via Natural or Artificial Opening (ICD-10-PCS; 2020-07-01)
PROC: 3E033VJ Introduction of Other Hormone into Peripheral Vein, Percutaneous Approach (ICD-10-PCS; 2020-07-01)
PROC: 3E0P7VZ Introduction of Hormone into Female Reproductive, Via Natural or Artificial Opening (ICD-10-PCS; 2020-07-01)
PROC: 0KQM0ZZ Repair Perineum Muscle, Open Approach (ICD-10-PCS; 2020-07-01)
PROC: 3E0R3BZ Introduction of Anesthetic Agent into Spinal Canal, Percutaneous Approach (ICD-10-PCS; 2020-07-01)
DX: O48.0 Post-term pregnancy (principal); Z3A.40 40 weeks gestation of pregnancy; Z37.0 Single live birth; Z91.018 Allergy to other foods; Z88.8 Allergy status to other drugs, medicaments and biological substances; O99.02 Anemia complicating childbirth; D64.9 Anemia, unspecified; O99.344 Other mental disorders complicating childbirth; F41.9 Anxiety disorder, unspecified; F32.9 Major depressive disorder, single episode, unspecified; O70.1 Second degree perineal laceration during delivery; O66.0 Obstructed labor due to shoulder dystocia; O72.1 Other immediate postpartum hemorrhage; Z87.19 Personal history of other diseases of the digestive system; Z20.822 Contact with and (suspected) exposure to COVID-19
CPT/HCPCS: 01967; 36415; 51701; 59409; 85027; A9270-GY; J0171; J2210; J2300; J2405; J2590; J3010; J7120; U0002

== ENCOUNTER 2020-07-16 10:51 | Emergency (ER) | payer BC, MEDICAID ==
[2020-07-16] MEDS ORDERED: fentaNYL 100 MCG/2 ML SDV IVPUSH ONE ×2 (11:50→12:34)
[2020-07-16] MEDS ORDERED: Sodium Chloride 0.9% 1,000 ML IV ONE (11:50)
[2020-07-16] MEDS ORDERED: Ondansetron 4 MG/2 ML SDV IVPUSH ONE (11:50)
--- NOTE | 2020-07-16 11:50 | EDM.PDOC ---
ED HPI GENERAL MEDICAL PROBLEM - General Chief Complaint: General Stated Complaint: RIB PAIN RIGHT SIDE Time Seen by Provider: 07/16/20 11:25 Source of Information: Reports: Patient History Limitations: Reports: No Limitations - History of Present Illness INITIAL COMMENTS - FREE TEXT/NARRATIVE: RUQ pain since yesterday when getting out of shower. Denies injury. Pain worse with movement. No nausea. Difficulty to change position. Recent Delivery (vaginal) No fever chills or cough. No vomiting. Right Upper Abdominal Pain Score (Numeric/FACES): 3 - Related Data Allergies Allergy/AdvReac Type Severity Reaction Status Date / Time metformin Allergy Diarrhea Verified 07/16/20 11:22 abernathy Allergy Hives Uncoded 07/16/20 11:22 Home Meds: Home Meds Pnv No.95/Ferrous Fum/Folic AC [ Vitamin Tablet] 1 each PO DAILY 06/03/20 [History] Past Medical History HEENT History: Reports: Impaired Vision Cardiovascular History: Reports: Heart Murmur, High Cholesterol Respiratory History: Reports: None Gastrointestinal History: Reports: Fatty Liver Other Gastrointestinal History: FROST Genitourinary History: Reports: None VAMP LINER History: Reports: Other VAMP LINER History: Control Implant Left upper arm Neurological History: Reports: None Psychiatric History: Reports: Anxiety, Depression Endocrine/Metabolic History: Reports: Other (See Below) Other Endocrine/Metabolic History: reports "prediabetes" Hematologic History: Reports: Anemia Immunologic History: Reports: None Oncologic (Cancer) History: Reports: None Other Dermatologic History: athletes foot - Infectious Disease History Infectious Disease History: Reports: None - Past Surgical History Head Surgeries/Procedures: Reports: None HEENT Surgical History: Reports: None Cardiovascular Surgical History: Reports: None GI Surgical History: Reports: None Other Musculoskeletal Surgeries/Procedures:: Surgery to right toe Social & Family History - Family History Family Medical History: No Pertinent Family History Psychiatric: Reports: Anxiety, Depression Endocrine/Metabolic: Reports: Diabetes, Type I, Diabetes, type II Oncologic: Reports: Breast, Uterine - Tobacco Use Tobacco Use Status *Q: Never Tobacco User - Caffeine Use Caffeine Use: Reports: Coffee, Soda - Recreational Drug Use Recreational Drug Use: No - Living Situation & Occupation Living situation: Reports: with Family Occupation: Employed ED ROS GENERAL - Review of Systems Review Of Systems: Comprehensive ROS is negative, except as noted in HPI. ED EXAM, GENERAL - Physical Exam Exam: See Below Exam Limited By: No Limitations General Appearance: Alert, Moderate Distress Eye Exam: Bilateral Eye: EOMI Ears: Normal External Exam, Normal TMs Nose: Normal Inspection Throat/Mouth: Normal Inspection Head: Atraumatic, Normocephalic Neck: Normal Inspection Respiratory/Chest: No Respiratory Distress, Lungs Clear, Normal Breath Sounds Cardiovascular: Normal Peripheral Pulses, Regular Rate, Rhythm GI/Abdominal: Normal Bowel Sounds, Soft, Guarding, Tender (RUQ). No: Distended Back Exam: Full Range of Motion. No: CVA Tenderness (L), CVA Tenderness (R) Extremities: Normal Inspection Neurological: Alert, Oriented, Normal Cognition Psychiatric: Normal Affect, Normal Mood Skin Exam: Warm, Dry, Intact, Normal Color Course - Vital Signs Last Recorded V/S: Last Vital Signs Temp 98.2 F 07/16/20 11:23 Pulse 86 07/16/20 11:23 Resp 20 07/16/20 11:23 BP 114/82 07/16/20 11:23 Pulse Ox 99 07/16/20 11:23 - Orders/Labs/Meds Labs: Laboratory Tests 07/16/20 07/16/20 07/16/20 Range/Units 11:47 11:47 11:47 WBC 9.4 (5.0-10.0) 10^3/uL RBC 4.45 (4.2-5.4) 10^6/uL Hgb 13.3 D (12.0-16.0) g/dL Hct 39.6 (37.0-47.0) % MCV 89.0 (80-100) fL MCH 29.9 (27.0-34.0) pg MCHC 33.6 (33.0-35.0) g/dL Plt Count 386 D (150-450) 10^3/uL Neut % (Auto) 69.0 (42.2-75.2) % Lymph % (Auto) 21.1 (20.5-50.1) % [place] % (Auto) 6.4 (2-8) % Eos % (Auto) 3.2 H (1.0-3.0) % Baso % (Auto) 0.3 (0.0-1.0) % D-Dimer, Quantitative 913 H (0-400) ng/mL Sodium 139 (136-145) mmol/L Potassium 3.6 (3.5-5.1) mmol/L Chloride 99 (98-107) mmol/L Carbon Dioxide 27 (21-32) mmol/L Anion Gap 16.6 H (7-13) mEq/L BUN 14 (7-18) mg/dL Creatinine 0.68 (0.55-1.02) mg/dL Est Cr Clr Drug Dosing 107.35 mL/min Estimated GFR (MDRD) > 60 BUN/Creatinine Ratio 20.6 (No establ ref range) Glucose 88 (74-99) mg/dL Lactic Acid (0.4-2.0) mmol/L Calcium 9.0 (8.5-10.1) mg/dL Total Bilirubin 0.4 (0.2-1.0) mg/dL AST 31 (15-37) U/L ALT 55 (14-59) U/L Alkaline Phosphatase 113 (46-116) U/L C-Reactive Protein 3.1 H (0.0-0.9) mg/dL Total Protein 8.4 H (6.4-8.2) g/dL Albumin 4.0 (3.4-5.0) g/dL Globulin 4.4 Albumin/Globulin Ratio 0.9 Amylase 31 (25-115) U/L Lipase 85 (73-393) U/L 07/16/20 Range/Units 11:47 WBC (5.0-10.0) 10^3/uL RBC (4.2-5.4) 10^6/uL Hgb (12.0-16.0) g/dL Hct (37.0-47.0) % MCV (80-100) fL MCH (27.0-34.0) pg MCHC (33.0-35.0) g/dL Plt Count (150-450) 10^3/uL Neut % (Auto) (42.2-75.2) % Lymph % (Auto) (20.5-50.1) % [place] % (Auto) (2-8) % Eos % (Auto) (1.0-3.0) % Baso % (Auto) (0.0-1.0) % D-Dimer, Quantitative (0-400) ng/mL Sodium (136-145) mmol/L Potassium (3.5-5.1) mmol/L Chloride (98-107) mmol/L Carbon Dioxide (21-32) mmol/L Anion Gap (7-13) mEq/L BUN (7-18) mg/dL Creatinine (0.55-1.02) mg/dL Est Cr Clr Drug Dosing mL/min Estimated GFR (MDRD) BUN/Creatinine Ratio (No establ ref range) Glucose (74-99) mg/dL Lactic Acid 1.3 (0.4-2.0) mmol/L Calcium (8.5-10.1) mg/dL Total Bilirubin (0.2-1.0) mg/dL AST (15-37) U/L ALT (14-59) U/L Alkaline Phosphatase (46-116) U/L C-Reactive Protein (0.0-0.9) mg/dL Total Protein (6.4-8.2) g/dL Albumin (3.4-5.0) g/dL Globulin Albumin/Globulin Ratio Amylase (25-115) U/L Lipase (73-393) U/L Meds: Medications Discontinued Medications Generic Name Dose Route Start Last Admin Trade Name Freq PRN Reason Stop Dose Admin Fentanyl 50 mcg 07/16/20 11:50 Sublimaze IVPUSH 07/16/20 11:51 ONETIME ONE Fentanyl 50 mcg 07/16/20 12:34 07/16/20 12:46 Sublimaze IVPUSH 07/16/20 12:35 50 mcg ONETIME ONE Administration Sodium Chloride 1,000 mls @ 500 mls/hr 07/16/20 11:50 07/16/20 12:23 Normal Saline IV 07/16/20 13:49 500 mls/hr .BOLUS ONE Administration Ibuprofen 600 mg 07/16/20 14:08 Motrin PO 07/16/20 14:09 ONETIME ONE Iopamidol 100 ml 07/16/20 12:34 07/16/20 13:25 Isovue-370 (76%) IVPUSH 07/16/20 12:35 66 ml ONETIME ONE Administration Ondansetron HCl 4 mg 07/16/20 11:50 07/16/20 12:23 Zofran IVPUSH 07/16/20 11:51 4 mg ONETIME ONE Administration Departure - Departure Time of Disposition: 14:02 Disposition: Home, Self-Care 01 Condition: Good Clinical Impression: Rib pain on right side, RUQ abdominal pain - Discharge Information *PRESCRIPTION DRUG MONITORING PROGRAM REVIEWED*: No *COPY OF PRESCRIPTION DRUG MONITORING REPORT IN PATIENT TESFAYE: No Instructions: Chest Wall Pain Forms: ED Department Discharge Additional Instructions: warm pack to rib area splint with moving or coughing alternate tylenol 650mg and ibuprofen 600mg every 4 hours as needed for discomfort pump and discard milk for 24 hours then resume breast feeding increase fluid intake today Sepsis Event Note (ED) - Evaluation Sepsis Screening Result: No Definite Risk - Focused Exam Vital Signs: Vital Signs Temp Pulse Resp BP Pulse Ox 07/16/20 11:23 98.2 F 86 20 114/82 99
[2020-07-16 12:13] LABS: ANION GAP 16.6 mEq/L (7-13); CHLORIDE,CL 99 mmol/L (98-107); SODIUM,NA 139 mmol/L (136-145)
[2020-07-16] MEDS ORDERED: Iopamidol 755 Mg/ML 100 ML Bottle IVPUSH ONE (12:34)
--- NOTE | 2020-07-16 13:31 | CT ---
PROCEDURE INFORMATION: Exam: CT Abdomen And Pelvis With Contrast Exam date and time: 07/16/2020 12:59 PM Age: 24 years old Clinical indication: Abdominal pain; Localized; Right upper quadrant (ruq); Additional info: Ruq/ chest pain, evevated d-dimer 913. 3 weeks post TECHNIQUE: Imaging protocol: Computed tomography of the abdomen and pelvis with intravenous contrast. Radiation optimization: All CT scans at this facility use at least one of these dose optimization techniques: automated exposure control; mA and/or kV adjustment per patient size (includes targeted exams where dose is matched to clinical indication); or iterative reconstruction. Contrast material: ISOVUE 370; Contrast volume: 66 ml; Contrast route: INTRAVENOUS (IV); COMPARISON: MR Abdomen w wo Cont 02/15/2017 9:26 AM FINDINGS: Liver: Normal. No mass. Gallbladder and bile ducts: The gallbladder is mildly distended. No stones are identified. Common bile duct does not appear to be enlarged. Pancreas: Normal. No ductal dilation. Spleen: Normal. No splenomegaly. Adrenal glands: Normal. No mass. Kidneys and ureters: Normal. No hydronephrosis. Stomach and bowel: Unremarkable. No obstruction. No mucosal thickening. Appendix: No evidence of appendicitis. Intraperitoneal space: Unremarkable. No free air. No significant fluid collection. Vasculature: Unremarkable. No abdominal aortic aneurysm. Lymph nodes: Unremarkable. No enlarged lymph nodes. Urinary bladder: Unremarkable as visualized. Reproductive: The uterus is enlarged with low attenuation within the endometrial canal. This could potentially represent retained blood products. Bones/joints: Unremarkable. No acute fracture. Soft tissues: Unremarkable. IMPRESSION: 1. Mildly distended gallbladder without radiopaque stone identified. Could consider ultrasound for additional assessment for non radiopaque stones. 2. Enlarged uterus with low density material within the endometrial canal. This is nonspecific on CT scan but could represent retained blood products related to the recent gestation.
--- NOTE | 2020-07-16 13:33 | CT ---
PROCEDURE INFORMATION: Exam: CT Chest With Contrast; Diagnostic Exam date and time: 07/16/2020 1:02 PM Age: 24 years old Clinical indication: Right-sided chest pain; Additional info: Ruq/ chest pain, evevated d-dimer 913. 3 weeks post TECHNIQUE: Imaging protocol: Diagnostic computed tomography of the chest with intravenous contrast. Radiation optimization: All CT scans at this facility use at least one of these dose optimization techniques: automated exposure control; mA and/or kV adjustment per patient size (includes targeted exams where dose is matched to clinical indication); or iterative reconstruction. Contrast material: ISOVUE 370; Contrast volume: 66 ml; Contrast route: INTRAVENOUS (IV); COMPARISON: No relevant prior studies available. FINDINGS: Lungs: Unremarkable. No consolidation. No masses. Pleural space: Unremarkable. No pneumothorax. No pleural effusion. Heart: Unremarkable. No cardiomegaly. No pericardial effusion. Aorta: Unremarkable. No aortic aneurysm. Lymph nodes: Unremarkable. No enlarged lymph nodes. Pulmonary arteries: No filling defect present within the pulmonary arteries. Bones/joints: Unremarkable. No acute fracture. Soft tissues: Unremarkable. IMPRESSION: Normal CT pulmonary angiogram. No evidence for pulmonary embolism or acute cardiopulmonary disease.
[2020-07-16] MEDS ORDERED: Ibuprofen 600 MG Tab PO ONE (14:08)
== END 2020-07-16 14:15 | disposition home or self-care (01) ==
LOC: DL.ED 10:51
DX: R10.11 Right upper quadrant pain (principal); R07.81 Pleurodynia; Z88.8 Allergy status to other drugs, medicaments and biological substances; Z91.018 Allergy to other foods
CPT/HCPCS: 36415; 71260; 74177; 80053; 82150; 83605; 83690; 85025; 85379; 86140; 96374; 96375; 99284; A9270; J2405; J3010; J7030; Q9967; 99283

== ENCOUNTER 2022-12-12 10:22 | Inpatient (IN) | payer BC, MEDICAID ==
[2022-12-12] MEDS ORDERED: Lidocaine 1% 30 ML SDV INJECT PRN (11:16)
[2022-12-12] MEDS ORDERED: Sodium Chloride 0.9% 10 ML Syringe FLUSH PRN (11:16)
[2022-12-12] MEDS ORDERED: Misoprostol 400 MCG (4 X 100 MCG TAB) RECTAL PRN (11:16)
[2022-12-12] MEDS ORDERED: Methylergonovine 0.2 MG/1 ML Amp IM PRN (11:16)
[2022-12-12] MEDS ORDERED: Lactated Ringers 1,000 ML IV ONE (11:16)
[2022-12-12] MEDS ORDERED: Tranexamic Acid 1,000 MG in Sodium Chloride 0.9% 100 ML IV PRN (11:16)
[2022-12-12] MEDS ORDERED: Carboprost Tromethamine 250 MCG/1 ML Amp IM PRN (11:16)
[2022-12-12] MEDS ORDERED: Acetaminophen 325 MG Tab PO PRN (11:16)
[2022-12-12] MEDS ORDERED: Ondansetron 4 MG/2 ML SDV IVPUSH PRN (11:16)
[2022-12-12] MEDS ORDERED: Lactated Ringers 1,000 ML IV SCH (11:30)
[2022-12-12] MEDS ORDERED: Oxytocin/Normal Saline 30 UNIT/500 ML BAG IV SCH ×2 (11:30)
[2022-12-12 11:32] LABS: HEMATOCRIT 35.9 % (37.0-47.0); HEMOGLOBIN 12.2 g/dL (12.0-16.0); MEAN CORPUSCULAR HEMOGLOBIN 29.8 pg (27.0-34.0); MEAN CORPUSCULAR VOLUME 87.6 fL (80-100); RED BLOOD CELL COUNT 4.1 10^6/uL (4.2-5.4); WHITE BLOOD CELL COUNT,WBC 9.2 10^3/uL (5.0-10.0)
[2022-12-12] MEDS ORDERED: Penicillin G Potassium 5 MILLUNITS in Sodium Chloride 0.9% 100 ML IV ONE (12:30)
[2022-12-12] MEDS ORDERED: Bupivacaine 0.25% 10 ML SDV ONE (16:24)
[2022-12-12] MEDS ORDERED: fentaNYL 100 MCG/2 ML SDV ONE (16:24)
[2022-12-12] MEDS ORDERED: fentaNYL 100 MCG/2 ML SDV EPIDUR ONE (16:30)
[2022-12-12] MEDS ORDERED: Bupivacaine 0.25% 10 ML SDV EPIDUR ONE (16:30)
[2022-12-12] MEDS ORDERED: ePHEDrine 50 MG/ML SDV IVPUSH PRN (16:49)
[2022-12-12] MEDS ORDERED: Phenylephrine HCl In 0.9% NaCl 1 MG/10 ML Syringe IVPUSH PRN (16:49)
[2022-12-12] MEDS ORDERED: Penicillin G Potassium 3 MILLUNITS in Sodium Chloride 0.9% 100 ML IV SCH (17:00)
[2022-12-12] MEDS ORDERED: Ropivacaine 200 MG in Premix Bag 1 BAG EPIDUR SCH (17:00)
[2022-12-12] MEDS ORDERED: Docusate Sodium 100 MG Cap PO PRN (19:38)
[2022-12-12] MEDS ORDERED: Benzocaine/Menthol 20%-0.5% Spray 78 GM Cannister TOP PRN (19:38)
[2022-12-12] MEDS ORDERED: Simethicone 80 MG Tab.Chew PO PRN (19:38)
[2022-12-12] MEDS ORDERED: Witch Hazel Medicated Pads 100/Jar TOP PRN (19:38)
[2022-12-12] MEDS: Ibuprofen 800 MG Tab PO PRN (23:01)
[2022-12-13] MEDS ORDERED: oxyCODONE 5 MG Tab PO ONE (00:35)
[2022-12-13] MEDS: Ferrous Sulfate 325 MG Tab PO SCH ×2 (08:00→13:01)
[2022-12-13] MEDS: Prenatal Multivitamin with Calcium/Folic Acid/Iron Tab PO SCH ×2 (08:00→13:01)
[2022-12-13] MEDS: Ibuprofen 800 MG Tab PO PRN ×2 (13:05→20:19)
[2022-12-13] MEDS: Acetaminophen 325 MG Tab PO PRN (20:59)
[2022-12-13 22:06] LABS: HEMOGLOBIN 10.7 g/dL (12.0-16.0); MEAN CORPUSCULAR HEMOGLOBIN 29.5 pg (27.0-34.0); MEAN CORPUSCULAR HGB CONC 33.4 g/dL (33.0-35.0); MEAN CORPUSCULAR VOLUME 88.2 fL (80-100); RED BLOOD CELL COUNT 3.63 10^6/uL (4.2-5.4); WHITE BLOOD CELL COUNT,WBC 7.9 10^3/uL (5.0-10.0)
[2022-12-14] MEDS: Acetaminophen 325 MG Tab PO PRN ×2 (02:25→11:26)
[2022-12-14] MEDS: Ibuprofen 800 MG Tab PO PRN (04:31)
[2022-12-14] MEDS: Prenatal Multivitamin with Calcium/Folic Acid/Iron Tab PO SCH (08:18)
[2022-12-14] MEDS: Ferrous Sulfate 325 MG Tab PO SCH (08:18)
== END 2022-12-14 12:45 | disposition home or self-care (01) | DRG 560 ==
LOC: DL.OBCHECK 10:22 → DL.OB 11:16
PROVIDERS: ADMIT Family Medicine; ATTEND Family Medicine
PROC: 10E0XZZ Delivery of Products of Conception, External Approach (ICD-10-PCS; principal; 2022-12-12)
PROC: 0HQ9XZZ Repair Perineum Skin, External Approach (ICD-10-PCS; 2022-12-12)
PROC: 3E0R3BZ Introduction of Anesthetic Agent into Spinal Canal, Percutaneous Approach (ICD-10-PCS; 2022-12-12)
PROC: 00HU33Z Insertion of Infusion Device into Spinal Canal, Percutaneous Approach (ICD-10-PCS; 2022-12-12)
DX: O48.0 Post-term pregnancy (principal); O99.284 Endocrine, nutritional and metabolic diseases complicating childbirth; E78.00 Pure hypercholesterolemia, unspecified; O99.02 Anemia complicating childbirth; D62 Acute posthemorrhagic anemia; O77.0 Labor and delivery complicated by meconium in amniotic fluid; O70.0 First degree perineal laceration during delivery; Z37.0 Single live birth; Z3A.40 40 weeks gestation of pregnancy; Z88.8 Allergy status to other drugs, medicaments and biological substances
CPT/HCPCS: 01967; 36415; 51702; 59409; 84112; 85027; A9270-GY; J2540; J2590; J2795; J3010; J3490; J7120